=== PATIENT | male | born 1950 | race Caucasian/White ===

== ENCOUNTER 2023-11-22 10:49 | Emergency (ER) | payer MEDICARE, BC, SELFPAY ==
[2023-11-22 11:34] VITALS: BP 148/78; PULSE 80; RESP 16; TEMP 37.1; O2SAT 97; BMI 27.3
--- NOTE | 2023-11-22 12:24 | ED_ITS ---
HPI - General Adult General Chief complaint: Diarrhea Stated complaint: Diarrhea Time Seen by Provider: 11/22/23 12:17 History of Present Illness HPI narrative: This 73-year-old male comes in reporting diarrhea frequently over the past 3 days. He has not had any fever, nausea, or vomiting. He does not report any blood in the toilet. He did have some mild abdominal discomfort in the right abdomen which now has moved across to the left side and now dissipated completely. He states that he is otherwise in good health. He has been able to take liquids. He arrives with normal vital signs. Related Data Previous Rx's Medication Instructions Recorded diphenoxylate-atropine 2.5 1 tab PO DAILY #10 tabs 11/22/23 mg-0.025 mg tablet (Lomotil) Allergies Allergy/AdvReac Type Severity Reaction Status Date / Time No Known Drug Allergies Allergy Verified 11/22/23 11:34 Review of Systems Status of ROS: Reports: 10 or more systems reviewed and unremarkable except as noted in History and below Narrative: Constitutional: No fevers, no weight gain or loss. Eyes: No discharge. No vision changes. HENT: No congestion, no sore throat, no ear pain. Cardiovascular: No chest pain, no palpitations. Respiratory: No shortness of breath, no wheezes, no cough. Gastrointestinal: Abdominal symptoms and diarrhea as described above. Genitourinary: No dysuria, no hematuria. Musculoskeletal: Normal range of motion. Skin: No rashes, no pruritis. Neurological: No dizziness, weakness, sensory change, speech change. Endo/Heme/Allergies: No bruising or bleeding. No polydipsia. Pysch: no suicidality, no anxiety, no insomnia. All other systems reviewed and are negative. PFSH PFS Social History Smoking Status: Never smoker How often do you have a drink containing alcohol: never AUDIT-C Alcohol total score: 0 Non-prescribed substance use: denies use Exam Narrative: Exam Narrative: Constitutional: Well-developed, well-nourished, no acute distress. HEENT: Normocephalic, atraumatic. Neck: Normal range of motion. Nontender. Supple. Heart: Regular. No murmurs. Normal rate. Intact distal pulses. Lungs: Clear to auscultation. No chest discomfort. No wheezes, rhonchi, or rales. Abdomen: Normal bowel sounds. Nontender. No rebound tenderness. Genitalia: Deferred. Back: No midline tenderness. Normal range of motion. Extremities: Normal range of motion. No injury. Skin: Intact. No rash. Warm. No erythema or pallor. Neurologic: No altered sensation. No weakness. Alert and oriented. Psychiatric: No suicidality. No anxiety or depression. No insomnia. Nursing notes and vitals signs are reviewed. Const: Vital Signs, click to edit/add: Vital Signs - 24 hr 11/22/23 11:34 Temperature 98.7 F Pulse Rate [Pulse Oximeter] 80 Respiratory Rate 16 [facility] 148/78 H Pulse Oximetry 97 Oxygen Delivery Me thod Room Air Course Vital Signs Vital signs: Initial Vital Signs Temperature 98.7 F 11/22/23 11:34 Temperature Source Temporal Artery Scan 11/22/23 11:34 Pulse Rate 80 11/22/23 11:34 Respiratory Rate 16 11/22/23 11:34 Blood Pressure 148/78 H 11/22/23 11:34 Blood Pressure Mean 101 11/22/23 11:34 Blood Pressure Position Sitting 11/22/23 11:34 Pulse Oximetry 97 11/22/23 11:34 Oxygen Delivery Method Room Air 11/22/23 11:34 Vital Signs Temperature 98.7 F 11/22/23 11:34 Pulse Rate 80 11/22/23 11:34 Respiratory Rate 16 11/22/23 11:34 Blood Pressure 148/78 H 11/22/23 11:34 Pulse Oximetry 97 11/22/23 11:34 Oxygen Delivery Method Room Air 11/22/23 11:34 Temperature 98.7 F 11/22/23 11:34 Pulse Rate 80 11/22/23 11:34 Respiratory Rate 16 11/22/23 11:34 Blood Pressure 148/78 H 11/22/23 11:34 Pulse Oximetry 97 11/22/23 11:34 Oxygen Delivery Method Room Air 11/22/23 11:34 Medications Administered Medications: Discontinued Medications Generic Name Dose Route Start Last Admin Trade Name Freq PRN Reason Stop Dose Admin Sodium Chloride 1,000 mls @ 1,000 mls/hr 11/22/23 12:30 11/22/23 13:27 0.9 % Sodium Chloride 1000 Ml IV 11/22/23 13:29 Infused .Q1H LISA Infusion Medical Decision Making MDM Narrative Medical decision making narrative: This patient comes in with recurrent and frequent diarrhea over the past couple days. He states that he had sudden onset of this even last night while in bed and was incontinent. He states that he has been taking liquids and is interested in food and feels hungry. He does not report any fevers. An IV was established and labs are acquired. These returned with reassuring findings. Additionally he received a L of normal saline. He has not had any diarrhea since arriving here. This patient is okay to return home. I advised using Imodium as needed and directed and increase his diet as tolerated. He did also receive a prescription for a few tablets of Lomotil. Lab Data Labs: Lab Results 11/22/23 11/22/23 Range/Units 11:48 12:20 WBC 4.08 L (4.50-11.00) K/uL RBC 5.11 (4.30-5.90) m/uL Hgb 16.3 (13.5-17.5) gm/dL Hct 49.3 (37.0-53.0) % MCV 97 (80-100) fL MCH 32 (26-34) pg MCHC 33 (32-36) gm/dL RDW Coeff of Mathew 12.2 (11.5-15.5) % Plt Count 240 (140-440) K/uL Neut % (Auto) 72.6 H (42.0-72.0) % Lymph % (Auto) 17.6 L (20-44) % [place] % (Auto) 9.1 (0.0-11.0) % Eos % (Auto) 0.2 (0.0-7.0) % Baso % (Auto) 0.5 (0.0-3.0) % Neut # (Auto) 3.00 (1.7-7.0) K/uL Lymph # (Auto) 0.70 L (0.90-2.90) K/uL [place] # (Auto) 0.40 (0.00-0.90) K/UL Eos # (Auto) 0.00 (0.00-0.50) K/uL Baso # (Auto) 0.00 (0.00-0.30) K/uL Abs Immat Gran (auto) 0.00 (0.00-0.30) K/uL Imm/Tot Granulo (auto) 0.0 % Sodium 136 (135-149) mmol/L Potassium 3.6 (3.6-5.1) mmol/L Chloride 100 (96-114) mmol/L Carbon Dioxide 23 (20-32) mmol/L Anion Gap 13 (7-15) mEq/L BUN 16 (7-30) mg/dL Creatinine 1.1 (0.5-1.5) mg/dL Estimated Creat Clear 63.60 Estimated GFR 72 ml/min Glucose 90 (60-115) mg/dL Calcium 9.0 (8.4-10.6) mg/dL SARS-CoV-2 (PCR) Negative SARS-CoV-2 (Negative) Influenza Type A (PCR) Negative PCR FLU A (Negative) Influenza Type B (PCR) Negative PCR FLU B (Negative) RSV (PCR) Negative PCR RSV (Negative) Discharge Plan Discharge Clinical Impression: Gastroenteritis Patient Disposition: Home, Self-Care Condition: Improved Additional Instructions: Increase diet as tolerated. Use medication as needed and directed. Follow up with MD or return if worsening. Prescriptions: New diphenoxylate-atropine [Lomotil] 2.5-0.025 mg tablet 1 tab PO DAILY Qty: 10 0RF Follow Up/Referrals: Sabas Conner MD [Primary Care Provider] - Stand Alone Forms: Cuídate Info Instructions
[2023-11-22 12:33] LABS: PCR FLU A Negative PCR FLU A (Negative); PCR FLU B Negative PCR FLU B (Negative); PCR RSV Negative PCR RSV (Negative)
[2023-11-22 12:47] LABS: Basophils Percent Auto 0.5 % (0.0-3.0); Eosinophils Percent Auto 0.2 % (0.0-7.0); Hematocrit 49.3 % (37.0-53.0); Hemoglobin* 16.3 gm/dL (13.5-17.5); Lymphocytes Percent Auto 17.6 % (20-44); Mean Corpuscular HGB Conc 33 gm/dL (32-36); Mean Corpuscular Hemoglobin 32 pg (26-34); Mean Corpuscular Volume 97 fL (80-100); Monocytes Percent Auto 9.1 % (0.0-11.0); Neutrophils Percent Auto 72.6 % (42.0-72.0); Platelet Count* 240 K/uL (140-440); RDW Coefficient of Variation % 12.2 % (11.5-15.5); Red Blood Count 5.11 m/uL (4.30-5.90); White Blood Count* 4.08 K/uL (4.50-11.00)
[2023-11-22] MEDS: 0.9 % SODIUM CHLORIDE 1000 ml 1,000 ML IV (12:52)
[2023-11-22 12:56] LABS: Slide Review Reflex No
[2023-11-22 12:58] LABS: Chloride* 100 mmol/L (96-114); Potassium* 3.6 mmol/L (3.6-5.1); Sodium* 136 mmol/L (135-149)
[2023-11-22 13:01] LABS: Anion Gap 13 mEq/L (7-15); Blood Urea Nitrogen* 16 mg/dL (7-30); Carbon Dioxide* 23 mmol/L (20-32); Creatinine* 1.1 mg/dL (0.5-1.5); Estimated Glomerular Filt Rate 72 ml/min
[2023-11-22 13:02] LABS: Glucose* 90 mg/dL (60-115)
[2023-11-22 13:12] LABS: SARS PCR* Negative SARS-CoV-2 (Negative)
== END 2023-11-22 13:52 | disposition home or self-care (01) ==
PROVIDERS: Emergency Provider Emergency Medicine Emergency Medical Services; PCP Family Medicine
DX: K52.9 Noninfective gastroenteritis and colitis, unspecified (principal)
CPT/HCPCS: 36415; 80048; 85025; 87631; 99283; 99284; J7030